=== PATIENT | male | born 1985 | race Caucasian/White ===

== ENCOUNTER 2021-07-01 08:52 | Outpatient (REF) | payer OTHER, SELFPAY ==
[2021-07-01 09:06] LABS: MANUAL DIFF FLAG NO
[2021-07-01 09:46] LABS: Basophils Percent Auto 0.3 % (0-2); Eosinophils Absolute Auto 0.1 X10*3/uL (0.0-0.4); Eosinophils Percent Auto 1.1 % (0-4); Hematocrit 45.5 % (42-52); Hemoglobin 15.7 g/dl (14.0-18.0); Imm Gran Abs Auto 0.01 X10*3/uL (0.00-0.03); Imm Gran Pct Auto 0.2 % (0.0-0.4); Lymphocytes Absolute Auto 1.6 X10*3/uL (1.2-4.9); Lymphocytes Percent Auto 24.8 % (20-40); Mean Corpuscular HGB Conc 34.5 g/dl (31.0-36.0); Mean Corpuscular Hemoglobin 28.9 pg (27.0-33.0); Mean Corpuscular Volume 83.6 fL (80-98); Monocytes Absolute Auto 0.6 X10*3/uL (0.1-1.2); Monocytes Percent Auto 8.8 % (2-11); Neutrophils Absolute Auto 4.1 X10*3/uL (2.0-8.3); Neutrophils Percent Auto 64.8 % (45-73); Platelet Count 296 X10*3/uL (160-400); Red Blood Count 5.44 X10*6/uL (4.60-5.80); Red Cell Distribution Width 11.9 % (11.0-16.0); White Blood Count 6.3 X10*3/uL (4.8-10.8)
[2021-07-01 10:04] LABS: Alanine Aminotransferase 50 U/L (0-40); Albumin Level 4.5 g/dL (3.5-5.0); Alkaline Phosphatase 100 U/L (39-117); Anion Gap 11 (12-20); Aspartate Amino Transferase 32 U/L (5-37); Bilirubin Total 1.3 mg/dL (0.0-1.0); Blood Urea Nitrogen 18 mg/dL (9-16); Calcium 9.8 mg/dL (8.4-10.2); Carbon Dioxide 27 mmol/L (22-29); Chloride 105 mmol/L (96-108); Cholesterol 144 mg/dL; Estimated Glomerular Filt Rate > 60; Glucose Random 94 mg/dL (60-115); HDL Cholesterol 42 mg/dL; LDL Cholesterol Calculated 87 mg/dl; Potassium 4.4 mmol/L (3.3-5.1); Sodium 139 mmol/L (135-145); Total Protein 7.4 g/dL (6.5-8.0); Triglycerides 78 mg/dL
== END 2021-07-01 08:53 | disposition home or self-care (01) ==
LOC: HO.LAB 08:52
PROVIDERS: PCP Internal Medicine; Visit Provider Internal Medicine
DX: Z00.00 Encounter for general adult medical examination without abnormal findings (principal); I10 Essential (primary) hypertension; M22.2X1 Patellofemoral disorders, right knee; M54.50 Low back pain, unspecified
CPT/HCPCS: 36415; 80053; 80061; 85025

== ENCOUNTER 2021-12-02 08:36 | Outpatient (REF) | payer OTHER, SELFPAY ==
[2021-12-02 09:57] LABS: Alanine Aminotransferase 55 U/L (0-40); Albumin Level 4.3 g/dL (3.5-5.0); Alkaline Phosphatase 116 U/L (39-117); Anion Gap 14 (12-20); Aspartate Amino Transferase 38 U/L (5-37); Bilirubin Total 1.9 mg/dL (0.0-1.0); Blood Urea Nitrogen 19 mg/dL (9-16); Carbon Dioxide 28 mmol/L (22-29); Chloride 104 mmol/L (96-108); Estimated Glomerular Filt Rate > 60; Glucose Random 98 mg/dL (60-115); Potassium 4.7 mmol/L (3.3-5.1); Sodium 141 mmol/L (135-145); Total Protein 7.3 g/dL (6.5-8.0)
[2021-12-02 10:19] LABS: Thyroid Stimulating Hormone 1.83 uIU/mL (0.32-4.0)
[2021-12-04 08:05] LABS: HBc Num1 0.07 S/CO (0.00-0.79); Hepatitis B Core Antibody Nonreactive (Nonreactive); ~HepC Num1 0.09 S/CO (0.00-0.79); ~Hepatitis B Surface Antibody REACTIVE (Nonreactive); ~Hepatitis C Antibody Nonreactive (Nonreactive)
[2021-12-04 08:10] LABS: HBsAGNum1 0.17 S/CO (0.00-0.99); Hepatitis B Surface Antigen Negative (Negative)
[2021-12-06 07:33] LABS: Hepatitis A Antibody IgM 0.16 Index (0-0.79); ~Hepatitis A Antibody IgM Nonreactive (Nonreactive)
== END 2021-12-02 08:37 | disposition home or self-care (01) ==
LOC: HO.LAB 08:36
PROVIDERS: PCP Internal Medicine; Visit Provider Internal Medicine
DX: G56.02 Carpal tunnel syndrome, left upper limb (principal); I10 Essential (primary) hypertension; R74.01 Elevation of levels of liver transaminase levels
CPT/HCPCS: 36415; 80053; 84443; 86704; 86706; 86709; 86803; 87340

== ENCOUNTER 2021-12-04 12:59 | Emergency (ER) | payer OTHER, SELFPAY ==
--- NOTE | ~2021-12-04 | CT_ITS ---
EXAMINATION: CT ABDOMEN AND PELVIS WITH CONTRAST CLINICAL INFORMATION: Left lower quadrant abdominal pain. COMPARISON: None TECHNIQUE: Multidetector volumetric images were obtained from the superior aspect of the liver through the pubic symphysis following administration 85 mL of Omnipaque 350 intravenous contrast. Sagittal and coronal reformatted images were obtained on the technologist's workstation. Oral Contrast: No. This CT examination was performed using dose optimization techniques as appropriate, variously including the following: *Automated exposure control. *Adjustment of mA and/or kV according to patient size (this includes techniques or standardized protocols for targeted exams where dose is matched to indication/reason for exam; i.e. extremities or head). *Use of iterative reconstruction technique. DLP: 771 mGy-cm FINDINGS: LUNG BASES: Mild subsegmental atelectasis. No focal consolidation or pleural effusion. LIVER, GALLBLADDER, AND BILIARY TREE: The liver measures 21 cm craniocaudally with decreased parenchymal attenuation, most consistent with hepatic steatosis. There is a tiny calcified granuloma centrally in the superior liver (3:13). Otherwise, the liver is normal in shape with no discrete focal abnormalities. There is no biliary ductal dilatation. Cholecystectomy. PANCREAS: Unremarkable. SPLEEN: Unremarkable. ADRENAL GLANDS: Unremarkable. KIDNEYS AND URETERS: The kidneys are normal in size, shape, and attenuation. There are a few too small to characterize hypodensities in the left kidney. For example, image 62 of series 6, which statistically are likely to represent simple cysts and do not require further follow up. No hydronephrosis, hydroureter, or calculi seen. No perinephric stranding. BLADDER: Unremarkable. GASTROINTESTINAL TRACT: There is wall thickening and surrounding fat stranding within a short segment of the descending colon centered around several diverticuli, most consistent with acute diverticulitis. No evidence of bowel obstruction. Normal appendix. ABDOMINAL WALL: No significant hernia is appreciated. LYMPH NODES: There is mesenteric haziness and scattered prominent mesenteric lymph nodes in the left abdomen near the abnormal segment of the descending colon, which are likely reactive changes. VASCULAR: Unremarkable. PELVIC VISCERA: Unremarkable. OSSEOUS STRUCTURES: Mdd-eqgdkizjwv-slniaxpzr sclerotic lesion in the left upper sacrum measuring 1.8 cm, likely representing some sort of fibro-osseous lesion. Also indeterminate but non-aggressive subtle sclerosis in the right ilium adjacent to the SI joint (4:550). CT/CT abdomen pelvis w con IMPRESSION: 1. Acute diverticulitis of the descending colon. After resolution of the acute findings, correlation with colonoscopy could be obtained if indicated to ensure the absence of underlying lesions. 2. In this examination, there is no evidence of pneumoperitoneum or drainable collections/abscess. 3. Hepatomegaly and hepatic steatosis.
[2021-12-04 15:15] VITALS: BP 157/80; PULSE 86; RESP 16; TEMP 36.9; O2SAT 100; BMI 32.6
[2021-12-04 15:48] LABS: Appearance Urine CLEAR; Basophils Percent Auto 0.3 % (0-2); Color Urine YELLOW; Eosinophils Absolute Auto 0.1 X10*3/uL (0.0-0.4); Eosinophils Percent Auto 0.8 % (0-4); Glucose Urine UA NEG (NEG); Hematocrit 44.7 % (42.0-52.0); Hemoglobin 15.2 g/dl (14.0-18.0); Imm Gran Abs Auto 0.04 X10*3/uL (0.00-0.03); Imm Gran Pct Auto 0.3 % (0.0-0.4); Leukocyte Esterase Urine NEG (NEG); Lymphocytes Absolute Auto 1.8 X10*3/uL (1.2-4.9); Lymphocytes Percent Auto 15.9 % (20-40); MANUAL DIFF FLAG NO; Mean Corpuscular Hemoglobin 28.7 pg (27.0-33.0); Mean Corpuscular Volume 84.5 fL (80.0-98.0); Mean Platelet Volume 9.8 fL (9.4-12.4); Monocytes Absolute Auto 1.2 X10*3/uL (0.1-1.2); Monocytes Percent Auto 10.4 % (2-11); Neutrophils Absolute Auto 8.3 x10*3/uL (2.0-8.3); Neutrophils Percent Auto 72.3 % (45-73); Nitrite Urine NEG (NEG); PH 5.5 (5.0-8.0); Platelet Count 251 X10*3/uL (160-400); Red Blood Count 5.29 X10*6/uL (4.60-5.80); Red Cell Distribution Width 11.9 % (11.0-16.0); Specific Gravity - Urine >= 1.030 (1.005-1.025); Urine Blood NEG (NEG); Urine Ketones NEG (NEG); Urine Protein NEG (NEG-TRACE); White Blood Count 11.5 X10*3/uL (4.8-10.8)
[2021-12-04 16:00] LABS: Anion Gap 12 (12-20); Blood Urea Nitrogen 20 mg/dL (9-16); Calcium 9.3 mg/dL (8.4-10.2); Carbon Dioxide 27 mmol/L (22-29); Chloride 102 mmol/L (96-108); Creatinine Clr Calc Pharmacy 117.2; Estimated Glomerular Filt Rate > 60; Glucose Random 92 mg/dL (60-115); Potassium 4.1 mmol/L (3.3-5.1); Sodium 137 mmol/L (135-145)
[2021-12-04 20:09] VITALS: BP 143/83; PULSE 89; RESP 17; TEMP 38.1; O2SAT 100
[2021-12-04 20:23] LABS: Alanine Aminotransferase 46 U/L (0-40); Albumin Level 4.4 g/dL (3.5-5.0); Alkaline Phosphatase 115 U/L (39-117); Aspartate Amino Transferase 29 U/L (5-37); Bilirubin Direct 0.4 mg/dL (0.0-0.5); Bilirubin Total 1.1 mg/dL (0.0-1.0); Lipase 19 U/L (8-78); Magnesium 2.1 mg/dL (1.6-2.6); Total Protein 7.3 g/dL (6.5-8.0)
[2021-12-04] MEDS: 0.9 % Sodium Chloride 1,000 ML 999 ML IVCONT (20:35)
[2021-12-04 20:42] VITALS: RESP 18
[2021-12-04] MEDS: Acetaminophen 325 MG TABLET 975 MG PO (20:42)
[2021-12-04] MEDS: Morphine Sulfate 4 MG/ML CARTRIDGE IVPUSH (20:42)
[2021-12-04] MEDS: ondansetron HCL 4 MG/2 ML VIAL IVPUSH (20:42)
[2021-12-04 20:54] LABS: COVID-19 Test Negative (Negative); IDNOW Serial# 16C4AD1C
[2021-12-04] MEDS: iohexoL 350 MG/ML 100 ML INFUS..BTL IV (20:58)
--- NOTE | 2021-12-04 21:07 | ED_ITS ---
HPI - Abdominal Pain General Chief Complaint: Abdominal Pain Stated Complaint: lower abd pain Time Seen by Provider: 12/04/21 20:04 Source: patient Mode of arrival: ambulatory Limitations: language barrier ( Mauritian-speaking) History of Present Illness HPI narrative: 36-year-old male who denies any significant past medical history reports he had his gallbladder removed presenting to the ED with complaints of left flank /left lower quadrant abdominal pain for the past 2-3 days worse today. patient noted to have a fever when he arrived into the emergency department room otherwise he did not realize he had fevers. He denies any dizziness, headache, neck pain /stiffness, trouble swallowing or breathing, loss of taste or smell, cough, sore throat, chest pain or shortness of breath, nasal congestion / rhino rrhea, dyspnea on exertion, orthopnea, palpitations, radiation of the abdominal pain, back pain, dysuria, hematuria, abnormal penile discharge, black or bloody stools, recent travel or sick contacts, recent antibiotic usage, possible bad food exposure any other symptoms complaints or concerns at this time. MD elicited complaint: abdominal pain and flank pain Onset (ago): day(s) (2-3) Pain Consistency: constant Location: LLQ and L flank Severity: severe Pain scale (0-10): 10 Quality: aching and sharp Radiation: none Migration to: no migration Exacerbating factors: nothing Relieving factors: nothing Associated symptoms: denies other symptoms Related Data Previous Rx's Medication Instructions Recorded amoxicillin 875 mg-potassium 1 tab PO BID 10 Days #20 tab 12/04/21 clavulanate 125 mg tablet oxycodone 5 mg tablet 5 mg PO Q6H PRN #14 tab 12/04/21 Allergies Allergy/AdvReac Type Severity Reaction Status Date / Time No Known Allergies Allergy Verified 12/04/21 15:14 Review of Systems Review of Systems Constitutional : No Fever, No Chills, No Night Sweats, No Fatigue, No Malaise Cardiovascular : No Chest Pain, No SOB Respiratory : No Cough, No Sputum, No Wheezing, No Dyspnea Gastrointestinal : + abdominal Pain LLQ/Left flank pain, No Nausea, No Vomiting, No Diarrhea, No Hematochezia, No Melena Genitourinary : No irregular bleeding, No Dysuria, No Urinary Frequency, No Hematuria,No Urinary Incontinence, No Urgency, No Flank Pain Musculoskeletal : No joint pain, No Myalgias, No Joint Swelling Skin : No Skin Lesions, No rash Neuro : No Weakness, No Numbness, No Paresthesias, No Loss of Consciousness, No Dizziness, No Headache Heme/Lymph: No Lymphadenopathy Endocrine : No Temperature Intolerance Yes all other systems are reviewed and are negative [facility] Past Medical History Attestation statement: The following information was validated with the patient. Social History Social History Advance Directives: No Advance Directives Information Provided: Yes Physical Exam ED Vital Signs: Vital Signs - 24 hr 12/04/21 15:15 12/04/21 20:09 12/04/21 20:42 Temperature 98.5 F 100.6 F H Pulse Rate 86 89 Respiratory Rate 16 17 18 Blood Pressure 157/80 H 143/83 H Pulse Oximetry 100 100 12/04/21 22:05 Temperature 99.2 F Pulse Rate Respiratory Rate Blood Pressure Pulse Oximetry BMI result Body Mass Index 32.6 Vital signs have been reviewed and patient's initial vitals were within normal limits although patient is now febrile at 100.6. Appearance: Alert. Oriented X3. No acute distress. Head: Normal external exam. Normocephalic. Eyes: PERRLA. EOMI. Conjunctiva and sclera normal. Eyelids normal. ENT: Pharynx normal. Uvula midline. Moist mucous membranes. No trismus noted. No drooling noted. No muffled voice noted. Neck: Normal inspection. Neck supple. FROM. No adenopathy. No meningeal signs. CVS: Normal heart rate and rhythm. Heart sound normal. No murmurs noted. Pulses normal throughout. Respiratory: No respiratory distress. Painless inspiration. Breath sounds normal. No wheezes/rales/rhonchi noted. Chest nontender. No accessory muscle usage noted or decreased air movement noted. Abdomen: Soft and Moderate tenderness palpation to the left lower quadrant /left flank. Nondistended. No guarding. No rigidity. Bowel sounds normal in all 4 quadrants. No distention noted. No organomegaly noted. No visible injury noted. No rebound tenderness. Negative Rovsing sign. Negative obturator's sign. Negative psoas sign. Negative Hanks sign. Back: No CVA tenderness. Full range of motion noted. Skin: Skin warm and dry. Normal skin color. Normal skin turgor. No rashes/lesions/lacerations noted. Extremities: Extremities exhibit normal range of motion. Extremities nontender. Neuro: Oriented X 3. No motor deficit. No sensory deficit. Reflexes normal. Normal steady gait. CN's II-XII intact bilaterally? Course Course Course Narrative: 20pm - 36-year-old male who denies any significant past medical history reports he had his gallbladder removed presenting to the ED with complaints of left flank /left lower quadrant abdominal pain for the past 2-3 days worse today. patient noted to have a fever when he arrived into the emergency department room otherwise he did not realize he had fevers. Plan: Labs were taken while the patient was in the waiting room and patient has an elevated white blood cell count [id number]. BUN 20. Total bilirubin 1.1. ALT 46. Otherwise all other labs are within normal limits. UA within normal limits no evidence of UTI patient negative for COVID. - Patient has a fever therefore will give 975 mg of p.o. Tylenol. Will obtain a CT scan abdomen pelvis with IV contrast. Will provide a L of IV fluids. 4 mg of Zofran 4 mg of morphine And re-evaluate. Reevaluation(s) Reevaluation #1: - CT scan abdomen pelvis with IV contrast revealed acute diverticulitis of the descending colon otherwise no other acute processes were noted. - Therefore due to patient tolerating p.o. fluids not having any nausea or vomiting he is requesting to go home after I offered admission for new onset of diverticulitis. Therefore will DC home with antibiotics and symptomatic treatment and instructions to follow-up with outside production inspector for of colonoscopy and to return if any new or worsening symptoms. Patient understands agrees this plan. Time: 22:13 [facility] - Abdominal Pain Medical Records Attestation: I reviewed the patient's medical records. Lab Data Attestation: I reviewed the patient's lab results. Result diagrams: 12/04/21 15:41 12/04/21 15:41 Labs: Lab Results 12/04/21 12/04/21 12/04/21 Range/Units 15:41 15:41 15:41 WBC 11.5 H (4.8-10.8) X10*3/uL RBC 5.29 (4.60-5.80) X10*6/uL Hgb 15.2 (14.0-18.0) g/dl Hct 44.7 (42.0-52.0) % MCV 84.5 (80.0-98.0) fL MCH 28.7 (27.0-33.0) pg MCHC 34.0 (31.0-36.0) g/dl RDW 11.9 (11.0-16.0) % Plt Count 251 (160-400) X10*3/uL MPV 9.8 (9.4-12.4) fL Immature Gran % (Auto) 0.3 (0.0-0.4) % Neut % (Auto) 72.3 (45-73) % Lymph % (Auto) 15.9 L (20-40) % Mcdonough % (Auto) 10.4 (2-11) % Eos % (Auto) 0.8 (0-4) % Baso % (Auto) 0.3 (0-2) % Lymph # (Auto) 1.8 (1.2-4.9) X10*3/uL Mcdonough # (Auto) 1.2 (0.1-1.2) X10*3/uL Eos # (Auto) 0.1 (0.0-0.4) X10*3/uL Baso # (Auto) 0.0 (0.0-0.2) X10*3/uL Abs Immat Gran (auto) 0.04 H (0.00-0.03) X10*3/uL Absolute Neuts (auto) 8.3 (2.0-8.3) x10*3/uL Absolute Nucleated RBC 0.000 (0.0-0.012) X10*3/uL Nucleated RBC % (auto) 0.0 (0.0-0.2) /100WBC PT (9.9-13.0) SEC INR (0.9-1.1) Sodium 137 (135-145) mmol/L Potassium 4.1 (3.3-5.1) mmol/L Chloride 102 (96-108) mmol/L Carbon Dioxide 27 (22-29) mmol/L Anion Gap 12 (12-20) BUN 20 H (9-16) mg/dL Creatinine 1.09 (0.5-1.4) mg/dL Estim Creat Clear Calc 117.2 Estimated GFR > 60 Random Glucose 92 (60-115) mg/dL Lactic Acid (0.5-2.0) mmol/L Calcium 9.3 D (8.4-10.2) mg/dL Magnesium 2.1 (1.6-2.6) mg/dL Total Bilirubin 1.1 H (0.0-1.0) mg/dL Direct Bilirubin 0.4 (0.0-0.5) mg/dL AST 29 (5-37) U/L ALT 46 H (0-40) U/L Alkaline Phosphatase 115 (39-117) U/L Total Protein 7.3 (6.5-8.0) g/dL Albumin 4.4 (3.5-5.0) g/dL Lipase 19 (8-78) U/L Urine Color YELLOW Urine Appearance CLEAR Urine pH 5.5 (5.0-8.0) Ur Specific [place] >= 1.030 H (1.005-1.025) Urine Protein NEG (NEG-TRACE) MG/DL Urine Glucose (UA) NEG (NEG) MG/DL Urine Ketones NEG (NEG) MG/DL Urine Blood NEG (NEG) Urine Nitrite NEG (NEG) Ur Leukocyte Esterase NEG (NEG) COVID-19 (LORI) (Negative) COVID-19 Clin Com 12/04/21 12/04/21 12/04/21 Range/Units 20:26 20:26 20:26 WBC (4.8-10.8) X10*3/uL RBC (4.60-5.80) X10*6/uL Hgb (14.0-18.0) g/dl Hct (42.0-52.0) % MCV (80.0-98.0) fL MCH (27.0-33.0) pg MCHC (31.0-36.0) g/dl RDW (11.0-16.0) % Plt Count (160-400) X10*3/uL MPV (9.4-12.4) fL Immature Gran % (Auto) (0.0-0.4) % Neut % (Auto) (45-73) % Lymph % (Auto) (20-40) % Mcdonough % (Auto) (2-11) % Eos % (Auto) (0-4) % Baso % (Auto) (0-2) % Lymph # (Auto) (1.2-4.9) X10*3/uL Mcdonough # (Auto) (0.1-1.2) X10*3/uL Eos # (Auto) (0.0-0.4) X10*3/uL Baso # (Auto) (0.0-0.2) X10*3/uL Abs Immat Gran (auto) (0.00-0.03) X10*3/uL Absolute Neuts (auto) (2.0-8.3) x10*3/uL Absolute Nucleated RBC (0.0-0.012) X10*3/uL Nucleated RBC % (auto) (0.0-0.2) /100WBC PT 12.7 (9.9-13.0) SEC INR 1.1 (0.9-1.1) Sodium (135-145) mmol/L Potassium (3.3-5.1) mmol/L Chloride (96-108) mmol/L Carbon Dioxide (22-29) mmol/L Anion Gap (12-20) BUN (9-16) mg/dL Creatinine (0.5-1.4) mg/dL Estim Creat Clear Calc Estimated GFR Random Glucose (60-115) mg/dL Lactic Acid 1.0 (0.5-2.0) mmol/L Calcium (8.4-10.2) mg/dL Magnesium (1.6-2.6) mg/dL Total Bilirubin (0.0-1.0) mg/dL Direct Bilirubin (0.0-0.5) mg/dL AST (5-37) U/L ALT (0-40) U/L Alkaline Phosphatase (39-117) U/L Total Protein (6.5-8.0) g/dL Albumin (3.5-5.0) g/dL Lipase (8-78) U/L Urine Color Urine Appearance Urine pH (5.0-8.0) Ur Specific [place] (1.005-1.025) Urine Protein (NEG-TRACE) MG/DL Urine Glucose (UA) (NEG) MG/DL Urine Ketones (NEG) MG/DL Urine Blood (NEG) Urine Nitrite (NEG) Ur Leukocyte Esterase (NEG) COVID-19 (LORI) Negative (Negative) COVID-19 Clin Com See Note Imaging Data CT scan abdomen pelvis with IV contrast: Attestation: I personally reviewed and interpreted this imaging study as follows: Radiologist's impression: FINDINGS: LUNG BASES: Mild subsegmental atelectasis. No focal consolidation or pleural effusion.? LIVER, GALLBLADDER, AND BILIARY TREE: The liver measures 21 cm craniocaudally with decreased parenchymal attenuation, most consistent with hepatic steatosis. There is a tiny calcified granuloma centrally in the superior liver (3:13). Otherwise, the liver is normal in shape with no discrete focal abnormalities. There is no biliary ductal dilatation. Cholecystectomy.? PANCREAS: Unremarkable.? SPLEEN: Unremarkable.? ADRENAL GLANDS: Unremarkable.? KIDNEYS AND URETERS: The kidneys are normal in size, shape, and attenuation. There are a few too small to characterize hypodensities in the left kidney. For example, image 62 of series 6, which statistically are likely to represent simple cysts and do not require further follow up. No hydronephrosis, hydroureter, or calculi seen. No perinephric stranding. ? BLADDER: Unremarkable.? GASTROINTESTINAL TRACT: There is wall thickening and surrounding fat stranding within a short segment of the descending colon centered around several diverticuli, most consistent with acute diverticulitis. No evidence of bowel obstruction. Normal appendix.? ABDOMINAL WALL: No significant hernia is appreciated.? LYMPH NODES: There is mesenteric haziness and scattered prominent mesenteric lymph nodes in the left abdomen near the abnormal segment of the descending colon, which are likely reactive changes. VASCULAR: Unremarkable. PELVIC VISCERA: Unremarkable.? OSSEOUS STRUCTURES: Oma-rwwhyxlzre-wbhiyuvua sclerotic lesion in the left upper sacrum measuring 1.8 cm, likely representing some sort of fibro-osseous lesion. Also indeterminate but non-aggressive subtle sclerosis in the right ilium adjacent to the SI joint (4:550).? CT/CT abdomen pelvis w con IMPRESSION: 1. Acute diverticulitis of the descending colon. After resolution of the acute findings, correlation with colonoscopy could be obtained if indicated to ensure the absence of underlying lesions. ? 2. In this examination, there is no evidence of pneumoperitoneum or drainable collections/abscess.? ? 3. Hepatomegaly and hepatic steatosis. Critical Care Time Critical Care Time Critical Care Time: Yes Total Critical Care Time: 60 Attestation: I personally attest to this time spent taking care of the patient Discharge Plan Discharge Clinical Impression: Diverticulitis Patient Disposition: Home, Self-Care Instructions: Diverticulitis (ED), Diverticulitis Diet (ED) Prescriptions: New amoxicillin-pot clavulanate 875-125 mg tablet 1 tab PO BID 10 Days Qty: 20 0RF oxycodone 5 mg tablet 5 mg PO Q6H PRN (Reason: pain) Qty: 14 0RF Referrals: Vane Lema MD [Physician] - 2 days ( for outpatient colonoscopy after resolution of your antibiotics/diverticulitis) Stand Alone Forms: Work/School Release Print Language: Mauritian
[2021-12-04 21:17] LABS: INTERNATIONAL NORM RATIO 1.1 (0.9-1.1); Prothrombin Time 12.7 SEC (9.9-13.0)
[2021-12-04 22:05] VITALS: TEMP 37.3
== END 2021-12-04 22:34 | disposition home or self-care (01) ==
PROVIDERS: Physician Assistant Medical; Emergency Provider Internal Medicine
DX: K57.32 Diverticulitis of large intestine without perforation or abscess without bleeding (principal); R10.30 Lower abdominal pain, unspecified; R50.9 Fever, unspecified; Z20.822 Contact with and (suspected) exposure to COVID-19; Z90.49 Acquired absence of other specified parts of digestive tract
CPT/HCPCS: 36415; 74177; 80048; 80076; 81003; 83605; 83690; 83735; 85025; 85610; 87040; 87635; 96361; 96374; 96375; 99284; 99291; J2270; J2405; Q9967

== ENCOUNTER 2022-07-14 08:31 | Outpatient (REF) | payer OTHER, SELFPAY ==
[2022-07-14 08:49] LABS: MANUAL DIFF FLAG NO
[2022-07-14 09:00] LABS: Basophils Percent Auto 0.5 % (0-2); Eosinophils Absolute Auto 0.1 X10*3/uL (0.0-0.4); Eosinophils Percent Auto 1.8 % (0-4); Hematocrit 48.4 % (42.0-52.0); Hemoglobin 16.4 g/dl (14.0-18.0); Imm Gran Abs Auto 0.01 X10*3/uL (0.00-0.03); Imm Gran Pct Auto 0.2 % (0.0-0.4); Lymphocytes Absolute Auto 1.8 X10*3/uL (1.2-4.9); Mean Corpuscular HGB Conc 33.9 g/dl (31.0-36.0); Mean Corpuscular Hemoglobin 28.5 pg (27.0-33.0); Mean Platelet Volume 9.9 fL (9.4-12.4); Monocytes Absolute Auto 0.5 X10*3/uL (0.1-1.2); Monocytes Percent Auto 8.2 % (2-11); Neutrophils Absolute Auto 3.6 x10*3/uL (2.0-8.3); Neutrophils Percent Auto 59.3 % (45-73); Platelet Count 282 X10*3/uL (160-400); Red Blood Count 5.76 X10*6/uL (4.60-5.80); Red Cell Distribution Width 11.8 % (11.0-16.0); White Blood Count 6.1 X10*3/uL (4.8-10.8)
[2022-07-14 09:27] LABS: Alanine Aminotransferase 38 U/L (0-40); Albumin Level 4.8 g/dL (3.5-5.0); Alkaline Phosphatase 106 U/L (39-117); Anion Gap 13 (12-20); Aspartate Amino Transferase 37 U/L (5-37); Bilirubin Total 1.3 mg/dL (0.0-1.0); Blood Urea Nitrogen 26 mg/dL (9-16); Carbon Dioxide 29 mmol/L (22-29); Chloride 104 mmol/L (96-108); Cholesterol 166 mg/dL; Estimated Glomerular Filt Rate > 60; Glucose Random 96 mg/dL (60-115); HDL Cholesterol 44 mg/dL; LDL Cholesterol Calculated 106 mg/dl; Sodium 141 mmol/L (135-145); Total Protein 7.9 g/dL (6.5-8.0); Triglycerides 82 mg/dL
[2022-07-14 09:48] LABS: Ferritin 229 ng/mL (20-250); Thyroid Stimulating Hormone 1.82 uIU/mL (0.32-4.0)
== END 2022-07-14 08:32 | disposition home or self-care (01) ==
LOC: HO.LAB 08:31
PROVIDERS: PCP Internal Medicine; Visit Provider Internal Medicine
DX: Z00.01 Encounter for general adult medical examination with abnormal findings (principal); I10 Essential (primary) hypertension; G56.01 Carpal tunnel syndrome, right upper limb; G25.81 Restless legs syndrome
CPT/HCPCS: 36415; 80053; 80061; 82728; 84443; 85025

== ENCOUNTER 2022-09-30 12:25 | Emergency (ER) | payer SELFPAY ==
--- NOTE | ~2022-09-30 | CT_ITS ---
EXAMINATION: CT ABDOMEN AND PELVIS WITHOUT CONTRAST CLINICAL INFORMATION: Left flank pain history of kidney stones. COMPARISON: CT abdomen and pelvis 12/04/2021. TECHNIQUE: Multidetector volumetric imaging was performed from the superior aspect of the liver through the pubic symphysis. Sagittal and coronal reformatted images were obtained on the technologist's workstation. This CT examination was performed using dose optimization techniques as appropriate, variously including the following: *Automated exposure control *Adjustment of mA and/or kV according to patient size (this includes techniques or standardized protocols for targeted exams where dose is matched to indication/reason for exam; i.e. extremities or head) *Use of iterative reconstruction technique DLP: 770 mGy-cm FINDINGS: LUNG BASES: The visualized lung bases are unremarkable. LIVER, GALLBLADDER, AND BILIARY TREE: The liver is borderline enlarged measuring 20 cm in length. It is normal shape and attenuation. No focal hepatic lesion or biliary ductal dilatation is present. The gallbladder has been surgically removed. PANCREAS: Unremarkable. SPLEEN: Unremarkable. ADRENAL GLANDS: Unremarkable. KIDNEYS AND URETERS: The kidneys are normal in size, shape, and attenuation. No hydronephrosis, hydroureter, or calculi seen. No perinephric stranding. BLADDER: Unremarkable. GASTROINTESTINAL TRACT: There is scattered diverticuli, stool in colon seen throughout the colon with mild mural thickening involving the distal descending colon with very colic fat stranding and thickening of the coronal fascia suggestive of acute diverticulitis. No proximal bowel obstruction. No collection or free air seen. ABDOMINAL WALL: No significant hernia is appreciated. LYMPH NODES: Normal. VASCULAR: Unremarkable. PELVIC VISCERA: Unremarkable. OSSEOUS STRUCTURES: Unremarkable. CT/CT abdomen pelvis wo IV con IMPRESSION: Colonic diverticulosis with descending colon diverticulitis. No collection, free air or proximal bowel obstruction seen. Similar findings were seen on the previous CT abdomen exam 12/04/2021. Fleischner guidelines were followed.
[2022-09-30 12:46] VITALS: BP 128/86; PULSE 77; RESP 18; TEMP 36.7; O2SAT 98; BMI 28.0
--- NOTE | 2022-09-30 12:48 | ED_ITS ---
HPI - General Adult General Chief complaint: Back Pain/Injury <RAY Giordano - Last Filed: 09/30/22 18:25> Stated complaint: L flank pain <RAY Giordano - Last Filed: 09/30/22 18:25> Time Seen by Provider: 09/30/22 13:10 <RAY Giordano - Last Filed: 09/30/22 18:25> History of Present Illness HPI narrative: Patient complains of left-sided flank pain which began yesterday, pain is described as moderate, there is no associated nausea vomiting or diarrhea there is no dysuria, no fever, no blood in urine no chest pain no shortness of breath no incontinence no numbness weakness or tingling no radiation of the pain no skin rash <RAY Peacock - Last Filed: 10/06/22 11:55> Related Data Home medications: Previous Rx's Medication Instructions Recorded amoxicillin 875 mg-potassium 1 tab PO BID diverticulitis 10 12/04/21 clavulanate 125 mg tablet days #20 tabs oxycodone 5 mg tablet 5 mg PO Q6H PRN pain #14 tabs 12/04/21 amoxicillin 875 mg-potassium 1 tab PO BID #14 tabs 09/30/22 clavulanate 125 mg tablet metronidazole 500 mg tablet 500 mg PO TID 7 days #21 tabs 09/30/22 oxycodone 5 mg tablet 5 mg PO Q6H PRN pain #14 tabs 09/30/22 <RAY Giordano - Last Filed: 09/30/22 18:25> Allergies/adverse reactions: Allergies Allergy/AdvReac Type Severity Reaction Status Date / Time No Known Allergies Allergy Verified 09/30/22 12:46 <RAY Giordano - Last Filed: 09/30/22 18:25> [facility] Past Medical History [facility] Narrative: Patient does have history of diverticulitis <RAY Peacock - Last Filed: 10/06/22 11:55> Source: nursing notes reviewed <RAY Peacock - Last Filed: 10/06/22 11:55> Social History Social History: Social History Advance Directives: No Advance Directives Information Provided: No <RAY Giordano Last Filed: 09/30/22 18:25> Physical Exam ED Vital Signs: Vital Signs - 24 hr 09/30/22 12:46 Temperature 98.0 F Pulse Rate 77 Respiratory Rate 18 Blood Pressure 128/86 Pulse Oximetry 98 Oxygen Delivery Method Room Air BMI result Body Mass Index 28.0 <RAY Giordano Last Filed: 09/30/22 18:25> Vital Signs - 24 hr 09/30/22 12:46 Temperature 98.0 F Pulse Rate 77 Respiratory Rate 18 Blood Pressure 128/86 Pulse Oximetry 98 Oxygen Delivery Method Room Air BMI result Body Mass Index 28.0 <RAY Peacock Last Filed: 10/06/22 11:55> General appearance no acute distress The eyes are anicteric no pallor The pharynx is clear no redness swelling or exudate mucous membranes moist Neck is supple Chest clear to auscultation bilateral no chest wall tenderness The abdomen is soft nontender The back exam there is some tenderness in the left flank area, range of motion of the back is full skin of the back is normal without redness rash or wound Neuro gait and balance are normal, interaction expression and comprehension are normal motor is 5/5 x4 and sensation is intact and symmetrical <RAY Peacock - Last Filed: 10/06/22 11:55> Course Course Course Narrative: RME: 37 yold male presents to the ED for left flank pain without trauam. patietn states no dysuria or hematuria or abdomial pain. Physical exam positive Left CVA. labs and UA and CT scan ordered <RAY Giordano Last Filed: 09/30/22 18:25> RME: 37 yold male presents to the ED for left flank pain without trauam. patietn states no dysuria or hematuria or abdomial pain. Physical exam positive Left CVA. labs and UA and CT scan ordered Lab workup, no white count on CBC Chemistry did show mild elevations of AST and ALT, 39 and 54, and a bilirubin of 1.2 which is similar to the prior which was 1.[address] scan without contrast of the abdomen and pelvis showed colonic diverticulosis with descending colon diverticulitis with mild mural thickening involving the d istal descending colon with pericolic fat stranding suggestive of acute diverticulitis, no abscess is no free air Patient is well-appearing and pain controlled with analgesics, he is tolerating p.o. he is not nauseous or vomiting he has no fever, on the last episode he had of diverticulitis it got better with antibiotics so he is prescribed antibiotics and will follow with his doctor <RAY Peacock - Last Filed: 10/06/22 11:55> Medications Administered Discontinued Medications Generic Name Dose Route Start Last Admin Trade Name Freq PRN Reason Stop Dose Admin Amoxicillin/Clavulanate Potassium 875 mg 09/30/22 15:49 09/30/22 16:07 Amoxicillin/Potassium Clav 875 Mg Tablet PO 09/30/22 15:50 875 mg ONCE ONE Administration Metronidazole 500 mg 09/30/22 15:49 09/30/22 16:07 Metronidazole 500 Mg Tablet PO 09/30/22 15:50 500 mg ONCE ONE Administration <RAY Giordano - Last Filed: 09/30/22 18:25> Medications Administered Discontinued Medications Generic Name Dose Route Start Last Admin Trade Name Freq PRN Reason Stop Dose Admin Amoxicillin/Clavulanate Potassium 875 mg 09/30/22 15:49 09/30/22 16:07 Amoxicillin/Potassium Clav 875 Mg Tablet PO 09/30/22 15:50 875 mg ONCE ONE Administration Metronidazole 500 mg 09/30/22 15:49 09/30/22 16:07 Metronidazole 500 Mg Tablet PO 09/30/22 15:50 500 mg ONCE ONE Administration <RAY Peacock - Last Filed: 10/06/22 11:55> Medical Decision Making Lab Data Result Diagrams: 09/30/22 12:58 09/30/22 12:58 <RAY Giordano - Last Filed: 09/30/22 18:25> Labs: Lab Results 09/30/22 09/30/22 09/30/22 Range/Units 12:58 12:58 13:04 WBC 10.5 (4.8-10.8) X10*3/uL RBC 5.24 (4.60-5.80) X10*6/uL Hgb 15.1 (14.0-18.0) g/dl Hct 43.8 (42.0-52.0) % MCV 83.6 (80.0-98.0) fL MCH 28.8 (27.0-33.0) pg MCHC 34.5 (31.0-36.0) g/dl RDW 12.0 (11.0-16.0) % Plt Count 256 (160-400) X10*3/uL MPV 9.5 (9.4-12.4) fL Immature Gran % (Auto) 0.3 (0.0-0.4) % Neut % (Auto) 69.5 (45-73) % Lymph % (Auto) 19.1 L (20-40) % Foard % (Auto) 9.3 (2-11) % Eos % (Auto) 1.6 (0-4) % Baso % (Auto) 0.2 (0-2) % Lymph # (Auto) 2.0 (1.2-4.9) X10*3/uL Foard # (Auto) 1.0 (0.1-1.2) X10*3/uL Eos # (Auto) 0.2 (0.0-0.4) X10*3/uL Baso # (Auto) 0.0 (0.0-0.2) X10*3/uL Abs Immat Gran (auto) 0.03 (0.00-0.03) X10*3/uL Absolute Neuts (auto) 7.3 (2.0-8.3) x10*3/uL Absolute Nucleated RBC 0.000 (0.0-0.012) X10*3/uL Nucleated RBC % (auto) 0.0 (0.0-0.2) /100WBC Sodium 139 (135-145) mmol/L Potassium 3.9 D (3.3-5.1) mmol/L Chloride 104 (96-108) mmol/L Carbon Dioxide 26 (22-29) mmol/L Anion Gap 13 (12-20) BUN 19 H (9-16) mg/dL Creatinine 1.01 (0.5-1.4) mg/dL Estim Creat Clear Calc 109.9 Estimated GFR > 60 Random Glucose 86 (60-115) mg/dL Calcium 9.4 (8.4-10.2) mg/dL Total Bilirubin 1.2 H (0.0-1.0) mg/dL AST 39 H (5-37) U/L ALT 54 H (0-40) U/L Alkaline Phosphatase 90 (39-117) U/L Total Protein 7.3 (6.5-8.0) g/dL Albumin 4.5 (3.5-5.0) g/dL Urine Color Yellow Urine Appearance Clear Urine pH 5.5 (5.0-9.0) Ur Specific [place] 1.010 (1.005-1.025) Urine Protein Negative (Neg-Trace) mg/dL Urine Glucose (UA) Negative (Negative) mg/dL Urine Ketones Negative (Negative) mg/dL Urine Blood Negative (Negative) Urine Nitrite Negative (Negative) Ur Leukocyte Esterase Negative (Negative) <RAY Giordano - Last Filed: 09/30/22 18:25> Lab Results 09/30/22 09/30/22 09/30/22 Range/Units 12:58 12:58 13:04 WBC 10.5 (4.8-10.8) X10*3/uL RBC 5.24 (4.60-5.80) X10*6/uL Hgb 15.1 (14.0-18.0) g/dl Hct 43.8 (42.0-52.0) % MCV 83.6 (80.0-98.0) fL MCH 28.8 (27.0-33.0) pg MCHC 34.5 (31.0-36.0) g/dl RDW 12.0 (11.0-16.0) % Plt Count 256 (160-400) X10*3/uL MPV 9.5 (9.4-12.4) fL Immature Gran % (Auto) 0.3 (0.0-0.4) % Neut % (Auto) 69.5 (45-73) % Lymph % (Auto) 19.1 L (20-40) % [place]oard % (Auto) 9.3 (2-11) % Eos % (Auto) 1.6 (0-4) % Baso % (Auto) 0.2 (0-2) % Lymph # (Auto) 2.0 (1.2-4.9) X10*3/uL [place]oard # (Auto) 1.0 (0.1-1.2) X10*3/uL Eos # (Auto) 0.2 (0.0-0.4) X10*3/uL Baso # (Auto) 0.0 (0.0-0.2) X10*3/uL Abs Immat Gran (auto) 0.03 (0.00-0.03) X10*3/uL Absolute Neuts (auto) 7.3 (2.0-8.3) x10*3/uL Absolute Nucleated RBC 0.000 (0.0-0.012) X10*3/uL Nucleated RBC % (auto) 0.0 (0.0-0.2) /100WBC Sodium 139 (135-145) mmol/L Potassium 3.9 D (3.3-5.1) mmol/L Chloride 104 (96-108) mmol/L Carbon Dioxide 26 (22-29) mmol/L Anion Gap 13 (12-20) BUN 19 H (9-16) mg/dL Creatinine 1.01 (0.5-1.4) mg/dL Estim Creat Clear Calc 109.9 Estimated GFR > 60 Random Glucose 86 (60-115) mg/dL Calcium 9.4 (8.4-10.2) mg/dL Total Bilirubin 1.2 H (0.0-1.0) mg/dL AST 39 H (5-37) U/L ALT 54 H (0-40) U/L Alkaline Phosphatase 90 (39-117) U/L Total Protein 7.3 (6.5-8.0) g/dL Albumin 4.5 (3.5-5.0) g/dL Urine Color Yellow Urine Appearance Clear Urine pH 5.5 (5.0-9.0) Ur Specific [place] 1.010 (1.005-1.025) Urine Protein Negative (Neg-Trace) mg/dL Urine Glucose (UA) Negative (Negative) mg/dL Urine Ketones Negative (Negative) mg/dL Urine Blood Negative (Negative) Urine Nitrite Negative (Negative) Ur Leukocyte Esterase Negative (Negative) <RAY Peacock - Last Filed: 10/06/22 11:55> Discharge Plan Discharge Clinical Impression: Diverticulitis <RAY Giordano - Last Filed: 09/30/22 18:25> Patient Disposition: Home, Self-Care <RAY Giordano - Last Filed: 09/30/22 18:25> Additional Instructions: CT scan did find diverticulitis, similar to the last time you had diverticulitis As it is recurrent it might be a good idea to follow with gastrointestinal doctor, so we have provided the number You may need referral from primary doctor Return to the ER any time for vomiting dehydration increased or worsening pain fever any worse condition or any concerns It is a good idea to get probiotics, available and vitamin section of pharmacy, for prevention of diarrhea from antibiotics <RAY Giordano - Last Filed: 09/30/22 18:25> Prescriptions: New amoxicillin-pot clavulanate 875-125 mg tablet 1 tab PO BID Qty: 14 0RF metronidazole 500 mg tablet 500 mg PO TID 7 Days Qty: 21 0RF oxycodone 5 mg tablet 5 mg PO Q6H PRN (Reason: pain) Qty: 14 0RF Rx Instructions: Partial Fill upon patient request. No Action amoxicillin-pot clavulanate 875-125 mg tablet 1 tab PO BID 10 Days Qty: 20 0RF oxycodone 5 mg tablet 5 mg PO Q6H PRN (Reason: pain) Qty: 14 0RF <RAY Giordano - Last Filed: 09/30/22 18:25> Referrals: Vane Lema MD [Physician] - (Recurrent diverticulitis) <RAY Giordano - Last Filed: 09/30/22 18:25> Interventions: ED Discharge Assessment Last Done: 09/30/22 16:32 <RAY Giordano - Last Filed: 09/30/22 18:25> Discharge Date/Time: 09/30/22 16:32 <RAY Giordano - Last Filed: 09/30/22 18:25>
[2022-09-30 13:02] LABS: MANUAL DIFF FLAG NO
--- NOTE | 2022-09-30 13:12 | PC.NURSE ---
pt ambulatory with steady gait into dept. sts his flank pain began around 4am, sts he is able to urinate withou difficulty. sts he has a hx of Cholelithiasis. but never kidney stones a&o x3 labs obtained, pending results. pt resting, awaiting provider
[2022-09-30 13:14] LABS: Basophils Percent Auto 0.2 % (0-2); Eosinophils Absolute Auto 0.2 X10*3/uL (0.0-0.4); Eosinophils Percent Auto 1.6 % (0-4); Hematocrit 43.8 % (42.0-52.0); Hemoglobin 15.1 g/dl (14.0-18.0); Imm Gran Abs Auto 0.03 X10*3/uL (0.00-0.03); Imm Gran Pct Auto 0.3 % (0.0-0.4); Lymphocytes Percent Auto 19.1 % (20-40); Mean Corpuscular HGB Conc 34.5 g/dl (31.0-36.0); Mean Corpuscular Hemoglobin 28.8 pg (27.0-33.0); Mean Corpuscular Volume 83.6 fL (80.0-98.0); Mean Platelet Volume 9.5 fL (9.4-12.4); Monocytes Percent Auto 9.3 % (2-11); Neutrophils Absolute Auto 7.3 x10*3/uL (2.0-8.3); Neutrophils Percent Auto 69.5 % (45-73); Platelet Count 256 X10*3/uL (160-400); Red Blood Count 5.24 X10*6/uL (4.60-5.80); White Blood Count 10.5 X10*3/uL (4.8-10.8)
[2022-09-30 13:22] LABS: Appearance Urine Clear; Color Urine Yellow; Glucose Urine UA Negative (Negative); Leukocyte Esterase Urine Negative (Negative); Nitrite Urine Negative (Negative); PH 5.5 (5.0-9.0); Urine Blood Negative (Negative); Urine Ketones Negative (Negative); Urine Protein Negative (Neg-Trace)
[2022-09-30 13:23] LABS: Alanine Aminotransferase 54 U/L (0-40); Albumin Level 4.5 g/dL (3.5-5.0); Alkaline Phosphatase 90 U/L (39-117); Anion Gap 13 (12-20); Aspartate Amino Transferase 39 U/L (5-37); Bilirubin Total 1.2 mg/dL (0.0-1.0); Blood Urea Nitrogen 19 mg/dL (9-16); Calcium 9.4 mg/dL (8.4-10.2); Carbon Dioxide 26 mmol/L (22-29); Chloride 104 mmol/L (96-108); Creatinine Clr Calc Pharmacy 109.9; Estimated Glomerular Filt Rate > 60; Glucose Random 86 mg/dL (60-115); Potassium 3.9 mmol/L (3.3-5.1); Sodium 139 mmol/L (135-145); Total Protein 7.3 g/dL (6.5-8.0)
[2022-09-30] MEDS: Amoxicillin/Potassium Clav 875 MG TABLET PO (16:07)
[2022-09-30] MEDS: metroNIDAZOLE 500 MG TABLET PO (16:07)
== END 2022-09-30 16:32 | disposition home or self-care (01) ==
PROVIDERS: Physician Assistant; Emergency Provider Emergency Medicine; PCP Internal Medicine
DX: K57.32 Diverticulitis of large intestine without perforation or abscess without bleeding (principal); R10.9 Unspecified abdominal pain; Z79.899 Other long term (current) drug therapy
CPT/HCPCS: 36415; 74176; 80053; 81003; 85025; 99282; 99283

== ENCOUNTER 2023-07-27 07:44 | Outpatient (REF) | payer OTHER, SELFPAY ==
[2023-07-27 08:52] LABS: Alanine Aminotransferase 37 U/L (0-40); Albumin Level 4.4 g/dL (3.5-5.0); Alkaline Phosphatase 82 U/L (39-117); Anion Gap 12 (12-20); Aspartate Amino Transferase 26 U/L (5-37); Bilirubin Total 0.9 mg/dL (0.0-1.0); Blood Urea Nitrogen 20 mg/dL (9-16); Calcium 9.5 mg/dL (8.4-10.2); Carbon Dioxide 28 mmol/L (22-29); Chloride 105 mmol/L (96-108); Cholesterol 150 mg/dL (<200); Estimated Glomerular Filt Rate > 60; Glucose Random 93 mg/dL (60-115); HDL Cholesterol 40 mg/dL (>40); LDL Cholesterol Calculated 99 mg/dL (<100); Sodium 141 mmol/L (135-145); Total Protein 7.5 g/dL (6.5-8.0); Triglycerides 59 mg/dL (<150)
== END 2023-07-27 07:45 | disposition home or self-care (01) ==
LOC: HO.LAB 07:44
PROVIDERS: PCP Internal Medicine; Visit Provider Internal Medicine
DX: E78.00 Pure hypercholesterolemia, unspecified (principal); I10 Essential (primary) hypertension; R63.5 Abnormal weight gain
CPT/HCPCS: 36415; 80053; 80061

== ENCOUNTER 2023-10-02 15:00 | Outpatient (AMB) | payer OTHER, SELFPAY ==
[2023-10-02 15:02] VITALS: BP 124/80; PULSE 93; BMI 32.9
--- NOTE | 2023-10-02 15:02 | A.OFFVIS_ITS ---
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 EKG shown right bundle-branch block leading to referral. Patient himself does not have any history of coronary disease myocardial infarction or cardiomyopathy or in fact any other cardiac issues. He is on the overweight side. Otherwise, he states that he exercises regularly without problems. He does get pains in the substernal area and left chest off and on. Sometimes the pain lasts all day. He believes on some occasions it starts after exercise but otherwise no specific reason. However, not clear-cut exertional patterns. 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 However, his work is only during the day. No documented sleep apnea. Primary care notes list hypertension dyslipidemia and that he is being started on lisinopril/HCTZ. PFSH Surgical History (Updated 10/02/23 @ 15:06 by VERNA Adhikari) Hx of cholecystectomy Family History (Updated 10/02/23 @ 15:07 by VERNA Adhikari) Father No problems noted. Mother HTN (hypertension) Social History (Updated 10/02/23 @ 15:07 by VERNA Adhikari) Patient Tobacco Use Status: Never used Tobacco Review of Systems Const Denies chills, Denies daytime sleepiness, Denies fatigue, Denies fever(s), Denies frequent falls, Denies poor appetite, Denies snoring, Denies stops breathing during sleep, Denies weakness, Denies weight gain and Denies weight loss Eyes Denies loss of vision ENT Denies dizziness and Denies hearing loss Card Denies chest pain, Denies claudication, Denies leg edema, Denies lightheadedness, Denies palpitations, Denies dyspnea, Denies dyspnea on exertion and Denies orthopnea Resp Denies cough, Denies excessive phlegm production, Denies dyspnea, Denies dyspnea on exertion, Denies snoring and Denies wheezing GI Denies abdominal pain, Denies hematochezia, Denies change in bowel habits, Denies nausea and Denies vomiting Denies dysuria and Denies urinary frequency Musc Denies arthralgias, Denies muscle weakness, Denies numbness and Denies other (frequent falls) Skin/Breast Denies nail changes and Denies rash Neuro Denies Abnormal speech present, Denies dizziness, Denies frequent falls, Denies loss of vision, Denies memory loss, Denies numbness and Denies weakness Psych Denies depression and Denies memory loss Endo Denies fatigue and Denies palpitations Constantin/Lymph Reports easy bruising and Reports other (anemia) Aller/Immun Denies wheezing Physical Exam Vital Signs: Last Vital Signs Pulse 93 10/02/23 15:02 BP 124/80 10/02/23 15:02 BMI result Body Mass Index 32.9 Const General: comfortable and no acute distress Orientation/consciousness: patient oriented x3 HEENT Other: Unremarkable Head: Yes normal to inspection Neck Neck: Yes normal visual inspection Chest Chest palpation & inspection: normal inspection of the chest Resp Auscultation: clear to auscultation bilaterally Cardio Palpation: normal PMI Heart sounds: S1 normal heart sound present, S2 normal heart sound present, no gallops, no murmurs and no rubs GI Palpation (GI): Soft to palpation Back/Spine/Pelvis Other: unremarkable Skin General skin exam: no rashes or lesions noted Neuro General: patient oriented x3 Speech: No Abnormal speech present Extrem General: Yes normal to inspection Psych Mental Status: mental status grossly normal Assessment & Plan Assessment & Plan (1) Precordial chest pain: Code(s): R07.2 - Precordial pain (2) RBBB: Code(s): I45.10 - Unspecified right bundle-branch block Plan EKG from PCP shows sinus rhythm at 91/Min; possible left atrial enlargement; right bundle-branch block pattern. Will need to repeat this as it is more than a year old. With regard to the chest pain, somewhat nonspecific as he describes it with and without exercise. Could be muscular. From cardiac standpoint, we can do an exercise stress test to ensure there is no ischemic components. Echocardiogram for LV function assessment/LVH. With regard to right bundle-branch block itself, we can do a sleep study to ensure there is no obstructive sleep apnea. Follow-up after testing. Orders: Orders CA echo transthoracic complete Today I45.10 - Unspecified right bundle-branch block CA echo stress exercise Today R07.2 - Precordial pain RT home sleep study Today G47.33 - Obstructive sleep apnea (adult) (pediatric), I45.10 - Unspecified right bundle-branch block ECG 12 lead EKG Today I45.10 - Unspecified right bundle-branch block Coding Level of Care Code New Pt Level 4 (07066) Diagnoses Precordial chest pain R07.2 RBBB I45.10
== END 2023-10-02 15:24 | disposition home or self-care (01) ==
PROVIDERS: PCP Internal Medicine; Visit Provider Internal Medicine
DX: R07.2 Precordial pain (principal); I45.10 Unspecified right bundle-branch block
CPT/HCPCS: 99204

== ENCOUNTER → 2023-10-02 15:00 | Outpatient (BNVA) | payer OTHER, SELFPAY | PROVIDERS: PCP Internal Medicine; Visit Provider Internal Medicine ==

== ENCOUNTER → 2023-10-24 08:56 | Outpatient (REF) | payer OTHER, SELFPAY ==
--- NOTE | 2023-10-24 08:58 | CA_ITS ---
Transthoracic Echocardiogram Patient (Last, First, Middle): Rosa Whitmore Montrell Benavidez Gender: Male Date of : 1985 Age: 38 Procedure Date: 10/24/2023 Procedure Type: Transthoracic Echocardiogram Location: OP Height: 180.34 cm Weight: 105.24 kg BSA: 2.25 m2 Heart Rate: bpm BP: 118 / 74 mmHg Machine Wood Sander: TO Referring MD: Tyler Helms MD Symptoms: I45.10 - Unspecified right bundle-branch block Study Quality: Fair ECG Rhythm: Sinus Conclusions: - The left ventricular systolic function is normal. The calculated ejection fraction is 58% by biplane method. - No obvious valvular pathology seen on this study. Findings Left Ventricle Normal left ventricular cavity size. There is mildly increased left ventricular wall thickness. The left ventricular systolic function is normal. The calculated ejection fraction is 58% by biplane method. There is no evidence of regional wall motion abnormalities. Diastolic function is normal for age. LV peak GLS -17.1%. Right Ventricle Normal right ventricular cavity size. There is low normal right ventricular systolic function. Atria Both atria are normal in size. Aortic Valve There is a normal trileaflet aortic valve. There is no aortic valve stenosis. There is no aortic valve regurgitation. Mitral Valve The mitral valve appears normal. There is trace mitral valve regurgitation. There is no mitral valve stenosis. Pulmonic Valve There is trace pulmonic valve regurgitation. Tricuspid Valve Normal tricuspid valve structure. There is trace tricuspid valve regurgitation. There is no evidence of pulmonary hypertension. Great Vessels The asc aorta is normal in size. Venous The inferior vena cava was not well visualized. The inferior vena cava is normal in size. Pericardium/Pleural There is no evidence of pericardial effusion. Prior Study Comparison No prior study available for comparison. Recommendations, Care & Conclusions No obvious valvular pathology seen on this study. Measurements 2D Linear Measurements IVSd: 1.17 0.6-0.9/0.6-1.0 cm LVIDd: 5.26 3.9-5.3/4.2-5.9 cm LVIDd Index: 2.34 2.4-3.2/2.2-3.1 cm/m2 LVIDs: 3.69 2.0-3.6 cm LVPWd: 1.05 0.7-1.1 cm LA Diam: 3.40 2.7-3.8/3.0-4.0 cm LAIDs Index: 1.51 1.5-2.3 cm/m2 LV Mass: 283.90 67-162/88-224 g LV Mass Index: 126.18 43-95/49-115 g/m2 LVOT Diam: 2.40 3.0+(-)1.3 cm 2D Systolic Function EF 4C: 60.60 >55% EF 2C: 55.50 >55% EF BiP: 58.40 >55% Mitral Valve MV Pk E: 0.45 MV PK A: 0.44 MV Decel Time: 212.00 E/A: 1.00 E'Lateral: 6.42 E'Medial: 5.55 E/E' Med: 8.10 E/E' Lat: 7.00 PHT: 62.00 MVA PHT: 3.55 Decel [place]: 2.12 Aortic Valve AoV Pk [place]: 0.99 AoV Mn [place]: 0.71 AoV VTI: 0.20 AoV Pk Grad: 4.00 Aov Mn Grad: 2.00 MARIANA Cont.VTI: 3.24 LVOT LVOT Pk [place]: 0.73 LVOT Mn [place]: 0.51 LVOT VTI: 0.14 LVOT Pk Grad: 2.00 LVOT Mn Grad: 1.00 LVOT Diam: 2.40 LVOT Area: 4.52 Diastolic Function MV Pk E: 0.45 MV Pk A: 0.44 E/A: 1.00 E'Medial: 5.55 E/E' Med: 8.10 E' Laterial: 6.42 E/E' Lat: 7.00 Right Ventricle TAPSE (mm): 18.00 TVS' [place]: 9.68 Tricuspid Valve RA Press: 3.00 Great Vessels Aorta Sinus of Valsalva: 3.87 2.0-3.[address] [place]: 2.87 1.7-3.4 cm Ao Asc: 3.30 2.1-3.4 cm Updated in Other Vendor System with Status of Final Tyler Helms MD electronically signed on 10/26/2023 9:54:45 AM with status of Final
--- NOTE | 2023-10-24 09:00 | ECG_ITS ---
Test Reason : RBBB Blood Pressure : / mmHG Vent. Rate : 065 BPM Atrial Rate : 065 BPM P-R Int : 158 ms QRS Dur : 116 ms QT Int : 414 ms P-R-T Axes : 039 028 020 degrees QTc Int : 430 ms Normal sinus rhythm with sinus arrhythmia Minimal voltage criteria for LVH, may be normal variant ( [place] product ) Borderline ECG No previous ECGs available Referred By: Sydney Colin Electronically Signed By:SYDNEY COLIN
== END ==
LOC: HO.CARD 08:56
PROVIDERS: PCP Internal Medicine; Visit Provider Internal Medicine
DX: I45.10 Unspecified right bundle-branch block (principal)
CPT/HCPCS: 93005; 93306; 93356

== ENCOUNTER → 2023-10-24 09:00 | Outpatient (BNV) | payer OTHER, SELFPAY | PROVIDERS: PCP Internal Medicine; Visit Provider Internal Medicine | DX: R07.2 Precordial pain (principal); I45.10 Unspecified right bundle-branch block | CPT/HCPCS: 93010; 93306 ==

== ENCOUNTER → 2023-10-29 10:48 | Outpatient (REF) | payer OTHER, SELFPAY ==
--- NOTE | 2023-10-29 10:50 | CA_ITS ---
Acquisition Time: 2023-10-29 10:52:29 Total Exercise Time: 00:12:31 Test Indications: RBBB, ABN EKG Medications: SEE H Protocol: KILLIAN Max HR: 176 BPM 96% of Pred: 183 BPM Max BP: 202/090 mmHG Max Work Load: 14.1 METS Exercise stress test exercise 12 min 31 sec of Killian protocol achieving 96% MPHR, with chronic 3/10 chest pain with no change in intensity, no shortness of breath, with isolated PVC, with max BP 202/90, without EKG changes, Echo images obtained by tech at rest and immedaitely post peak exercise. Definity contrast used. Test reviewed with Dr. Mg. Referred By: Tyler Helms Overread By: Neelima Lake
== END ==
LOC: HO.CARD 10:48
PROVIDERS: PCP Internal Medicine; Visit Provider Internal Medicine
DX: R07.2 Precordial pain (principal)
CPT/HCPCS: 93350; Q9957

== ENCOUNTER → 2023-10-29 10:50 | Outpatient (BNV) | payer OTHER, SELFPAY | PROVIDERS: PCP Internal Medicine; Visit Provider Nurse Practitioner | DX: R07.2 Precordial pain (principal); R94.31 Abnormal electrocardiogram [ECG] [EKG] | CPT/HCPCS: 93016; 93018; 93350; 93352 ==

== ENCOUNTER → 2023-11-12 10:49 | Outpatient (REF) | payer OTHER, SELFPAY | LOC: HO.SL 10:49 | PROVIDERS: PCP Internal Medicine; Visit Provider Internal Medicine | DX: G47.33 Obstructive sleep apnea (adult) (pediatric) (principal) | CPT/HCPCS: 95806 ==

== ENCOUNTER → 2023-11-12 10:58 | Outpatient (BNV) | payer OTHER, SELFPAY | PROVIDERS: PCP Internal Medicine; Visit Provider Internal Medicine | DX: R06.83 Snoring (principal) | CPT/HCPCS: 95806 ==

== ENCOUNTER 2025-04-02 08:03 | Outpatient (REF) | payer OTHER, SELFPAY ==
--- OUTSIDE RECORDS SUMMARY | 2025-04-02 08:06 | XMS_ITS | Encounter Summary ---
Author Organization [facility] Address [address] [place] [address] Phone Care Team Providers Care Corporate Legal Secretary Name Role Phone Ryann Rivera MD Primary Care Provider [phone] Encounter Details Date Type Department Care Team (Late st Contact Info) Description 11/14/2022 Documentation Only [facility] [address] [place] [id number] Radha Pierre MA Social History Tobacco Use Types Packs/Day Years Used Date Smoking Tobacco: Never Smokeless Tobacco: Never Alcohol Use Standard Drinks/Week Comments Never 0 (1 standard drink = 0.6 oz pur e alcohol) Sex and Gender Information Value Date Recorded Sex Assigned at Not on file Legal Sex Male 10:22 AM EST Gender Identity Not on file Sexual Orientation Not on file documented as of this encounter Plan of Treatment Not on file documented as of this encounter Visit Diagnoses Not on filedocumented in this encounter Care Teams Corporate Legal Secretary Relationship Specialty Start Date End Date Ryann Rivera MD [address] [place] [address] [address] [place] PCP - General Internal Medicine 07/31/21 documented as of this encounter
[2025-04-02 09:14] LABS: Alanine Aminotransferase 84 U/L (0-40); Albumin Level 4.6 g/dL (3.5-5.0); Alkaline Phosphatase 75 U/L (39-117); Anion Gap 13 (12-20); Aspartate Amino Transferase 42 U/L (5-37); Blood Urea Nitrogen 22 mg/dL (9-16); Calcium 9.1 mg/dL (8.4-10.2); Carbon Dioxide 26 mmol/L (22-29); Chloride 106 mmol/L (96-108); Estimated Glomerular Filt Rate > 60; Potassium 4.1 mmol/L (3.3-5.1); Sodium 141 mmol/L (135-145); Total Protein 7.5 g/dL (6.5-8.0)
== END 2025-04-02 08:04 | disposition home or self-care (01) ==
LOC: HO.LAB 08:03
PROVIDERS: PCP Internal Medicine; Visit Provider Internal Medicine
DX: I10 Essential (primary) hypertension (principal); R74.01 Elevation of levels of liver transaminase levels; Z68.32 Body mass index [BMI] 32.0-32.9, adult
CPT/HCPCS: 36415; 80053

== ENCOUNTER 2025-06-15 08:22 | Outpatient (REF) | payer OTHER, SELFPAY ==
--- NOTE | 2025-06-15 08:25 | EMG_ITS ---
Chief complaint: Bilateral hand numbness and tingling Reason for referral: Evaluate for Carpal Tunnel Syndrome Referred by: Korin Rivera MD Procedure done: Bilateral upper extremity NCS/ EMG was performed Bilateral median and ulnar motor and sensory studies were performed bilateral median and lateral antecubital brachial sensory studies were performed. Bilateral radial sensory studies were performed. There was mild slowing of median motor conduction velocities across elbow. There was slightly delayed distal latency of right median mixed with slow conduction velocity Impression: 1. [id number] right median neuropathy across carpal tunnel 2. Mild bilateral ulnar neuropathy across elbow MTDD
--- OUTSIDE RECORDS SUMMARY | 2025-06-15 08:43 | XMS_ITS | Clinical Summary ---
Author Organization [facility] Facility Address [address] [place] [id number] Care Team Providers Care Shell Trim Tool Setter Name Role Phone Ryann Rivera MD Primary Care Provider Allergies No known active allergies Medications losartan (COZAAR) 50 MG tablet Take 50 mg by mouth 1 (one) time each day 08/01/2022 Active Active Problems Problem Noted Date Diagnosed Date Essential (primary) hypertension 08/17/2021 Family History Medical History Relation Comments Hypertension Mother Relation Status Comments Father Mother Alive Social History Tobacco Use Types Packs/Day Years Used Date Smoking Tobacco: Never Smokeless Tobacco: Never Tobacco Cessation:Counseling Given: Not Answered Alcohol Use Standard Drinks/Week Comments Never 0 (1 standard drink = 0.6 oz pur e alcohol) Sex and Gender Information Value Date Recorded Sex Assigned at Not on file Legal Sex Male 10:22 AM EST Gender Identity Not on file Sexual Orientation Not on file Last Filed Vital Signs Vital Sign Reading Time Taken Comments Blood Pressure 122/85 09/13/2022 3:46 PM EST Pulse 84 09/13/2022 3:46 PM EST Temperature - - Respiratory Rate - - Oxygen Saturation 98% 09/13/2022 3:46 PM EST Inhaled Oxygen Concentration - - Weight 110 kg (241 lb 12.8 oz) 09/13/2022 3:46 P M EST Height - - Body Mass Index - - Plan of Treatment Health Maintenance Due Date Last Done Comments Hepatitis B Vaccine (1 of 3 - 19+ 3-dose series) 05/04 Pneumococcal Vaccine: Peds ( 0 to 5 Years) and At-Risk Patients (6 to 49 Years) (1 of 2 - PCV) 2005 Influenza Vaccine (#1) 2025 Care Teams Shell Trim Tool Setter Relationship Specialty Start Date End Date Ryann Rivera MD [address] PCP - General Internal Medicine 07/31/21
--- OUTSIDE RECORDS SUMMARY | 2025-06-15 08:43 | XMS_ITS | Encounter Summary ---
Author Organization [facility] Address [address] [place] [address] Phone Care Team Providers Care Product Advisor Name Role Phone Ryann Rivera MD Primary Care Provider Encounter Details Date Type Department Care Team (Late st Contact Info) Description 11/14/2022 Documentation Only [facility] [address] [place] [address] Radha Pierre MA Social History Tobacco [...] on filedocumented in this encounter Care Teams Product Advisor Relationship Specialty Start Date End Date Ryann Rivera MD [address] [place] [address] [address] [place] PCP - General Internal Medicine 07/31/21 documented as of this encounter
== END 2025-06-15 08:23 | disposition home or self-care (01) ==
LOC: HO.NEURO 08:22
PROVIDERS: PCP Internal Medicine; Visit Provider Internal Medicine
DX: G56.03 Carpal tunnel syndrome, bilateral upper limbs (principal)
CPT/HCPCS: 95886; 95913

== ENCOUNTER → 2025-06-15 08:25 | Outpatient (BNV) | payer OTHER, SELFPAY | PROVIDERS: PCP Internal Medicine; Visit Provider Psychiatry & Neurology Neurology | DX: G56.01 Carpal tunnel syndrome, right upper limb (principal) | CPT/HCPCS: 95886; 95911 ==

== ENCOUNTER 2025-07-05 07:29 | Outpatient (REF) | payer OTHER, SELFPAY ==
--- OUTSIDE RECORDS SUMMARY | 2025-07-05 07:33 | XMS_ITS | Clinical Summary ---
Author Organization [facility] Facility Address [address] [place] [address] Care Team Providers Care Machine Programmer Name Role Phone Ryann Rivera MD Primary Care Provider [phone] Allergies No known active allergies Medications losartan [...] 2005 Influenza Vaccine (#1) 2025 Care Teams Machine Programmer Relationship Specialty Start Date End Date Ryann Rivera MD [address] PCP - General Internal Medicine 07/31/21
--- OUTSIDE RECORDS SUMMARY | 2025-07-05 07:33 | XMS_ITS | Encounter Summary ---
Author Organization [facility] Address [address] [place] [address] Phone Care Team Providers Care Nuisance Animal Damage Control Agent Name Role Phone Ryann Rivera MD Primary Care Provider Encounter Details Date Type Department Care Team (Late st Contact Info) Description 11/14/2022 Documentation Only [facility] [address] [place] [address] Radha Pierre MA Social History Tobacco [...] on filedocumented in this encounter Care Teams Nuisance Animal Damage Control Agent Relationship Specialty Start Date End Date Ryann Rivera MD [address] [place] [address] [address] [place] PCP - General Internal Medicine 07/31/21 documented as of this encounter
[2025-07-05 08:45] LABS: Alanine Aminotransferase 96 U/L (0-40); Albumin Level 4.5 g/dL (3.5-5.0); Alkaline Phosphatase 66 U/L (39-117); Anion Gap 14 (12-20); Aspartate Amino Transferase 54 U/L (5-37); Blood Urea Nitrogen 17 mg/dL (9-16); Calcium 9.3 mg/dL (8.4-10.2); Carbon Dioxide 28 mmol/L (22-29); Chloride 104 mmol/L (96-108); Cholesterol 170 mg/dL (<200); Estimated Glomerular Filt Rate > 60; HDL Cholesterol 40 mg/dL (>40); Potassium 4.1 mmol/L (3.3-5.1); Sodium 142 mmol/L (135-145); Total Protein 6.9 g/dL (6.5-8.0); Triglycerides 96 mg/dL (<150)
== END 2025-07-05 07:30 | disposition home or self-care (01) ==
LOC: HO.LAB 07:29
PROVIDERS: PCP Internal Medicine; Visit Provider Internal Medicine
DX: I10 Essential (primary) hypertension (principal); R74.01 Elevation of levels of liver transaminase levels; M25.511 Pain in right shoulder; G56.03 Carpal tunnel syndrome, bilateral upper limbs
CPT/HCPCS: 36415; 80053; 80061